=== PATIENT | female | born 1955 | race Caucasian/White ===

== ENCOUNTER 2025-05-05 05:06 | Inpatient (IN) | payer OTHER ==
[~2025-05-05] VITALS: Ht 154.9 cm; Wt 67.3 kg
[2025-05-05 06:00] VITALS: BP 131/80; TEMP 97.7; O2SAT 98
[2025-05-05] MEDS ORDERED: ANESTHESIA TRAY IN PYXIS 1 EA TRAY MC ONE (06:16)
[2025-05-05] MEDS ORDERED: BUPIVACAINE 0.5 % PF 150 MG/30 ML VIAL ONE (06:16)
[2025-05-05] MEDS ORDERED: MIDAZOLAM HCL 2 MG/2ML VIAL ONE (06:35)
[2025-05-05] MEDS ORDERED: FENTANYL PF 100MCG/2ML AMPUL ONE ×2 (06:35→08:37)
[2025-05-05] MEDS ORDERED: BUPIVACAINE MPF W/EPI 0.25% 30 ML VIAL ONE (06:44)
[2025-05-05] MEDS ORDERED: LIDOCAINE 1%-EPI 1:100,000 20 ML VIAL ONE (06:45)
[2025-05-05 06:56] VITALS: BP 131/80; TEMP 97.7; O2SAT 99
[2025-05-05] MEDS: TRANEXAMIC ACID 3,000 MG in SODIUM CHLORIDE IRRIG SOLUTION 70 ML IR ONE (07:00)
[2025-05-05] MEDS ORDERED: TRANEXAMIC ACID 1,000 MG/10 ML VIAL ONE (07:31)
[2025-05-05] MEDS ORDERED: SEVOFLURANE 250 ML BOTTLE IH ONE (07:45)
[2025-05-05] MEDS ORDERED: MENTHOL/CETYLPYRD (CEPACOL) 1 LOZ LOZENGE PO PRN (10:00)
[2025-05-05] MEDS ORDERED: CLONIDINE HCL 0.1 MG TABLET PO PRN (10:00)
[2025-05-05] MEDS ORDERED: LORAZEPAM 1 MG TABLET PO PRN (10:00)
[2025-05-05] MEDS: HYDROMORPHONE 1 MG/1 ML DISP.SYRIN IM/IV/SC ONE (11:20)
[2025-05-05] MEDS ORDERED: SENNOSIDES 8.6 MG TABLET PO PRN (12:00)
[2025-05-05] MEDS ORDERED: PROGESTERONE PO (12:02)
[2025-05-05] MEDS ORDERED: ESTRADIOL TP (12:02)
[2025-05-05] MEDS ORDERED: TESTOSTER TP (12:02)
[2025-05-05] MEDS: IV LR 1000 ML 1,000 ML IV PRN (14:01)
[2025-05-05] MEDS: ANCEF 1 GM/50 ML D5W IV SCH (14:01)
[2025-05-05] MEDS: HYDROMORPHONE 1 MG/1 ML DISP.SYRIN IM/IV/SC PRN (14:26)
[2025-05-05 16:16] VITALS: BP 92/82; TEMP 97.7; O2SAT 98
[2025-05-05] MEDS: DOCUSATE SODIUM 100 MG CAPSULE PO SCH (17:28)
[2025-05-05 20:00] VITALS: BP 113/66; TEMP 97.9; O2SAT 99
[2025-05-05] MEDS: ONDANSETRON HCL/PF 4 MG/2 ML VIAL IV PRN (20:37)
[2025-05-05] MEDS: FAMOTIDINE (20 MG) 20 MG TABLET PO SCH (21:07)
[2025-05-05] MEDS: ZOLPIDEM TARTRATE 5 MG TABLET PO PRN (22:51)
[2025-05-06 08:00] VITALS: BP 97/66; TEMP 98.2; O2SAT 98
[2025-05-06] MEDS: oxyCODONE IR immediate release 5 MG TABLET PO PRN ×2 (08:16→18:08)
[2025-05-06] MEDS: ASPIRIN 325 MG TABLET PO SCH (08:17)
[2025-05-06 16:00] VITALS: BP 99/63; TEMP 97.7; O2SAT 97
[2025-05-06 20:00] VITALS: BP 121/65; TEMP 97.5; O2SAT 97
[2025-05-07 08:40] VITALS: BP 95/56; TEMP 99.1; O2SAT 93
[2025-05-07 10:46] VITALS: BP 120/66; O2SAT 95
[2025-05-07] MEDS: ACETAMINOPHEN 325 MG TABLET PO PRN (17:19)
[2025-05-07 21:31] VITALS: BP 106/60; TEMP 97.5; O2SAT 96
[2025-05-08 08:00] VITALS: BP 116/72; TEMP 98.6; O2SAT 96
[2025-05-08 12:27] LABS: CALCIUM, SERUM 7.9 mg/dL (8.5-10.1); CREATININE 0.7 mg/dL (0.6-1.3); SODIUM SERUM 139.0 mmol/L (136-145); UREA NITROGEN, BLOOD 10.0 mg/dL (7-18)
[2025-05-08 13:28] LABS: PLATELET COUNT (AUTO) 226 K/uL (150-450); RED BLOOD CELL COUNT(AUTO) 3.62 MIL/uL (4.0-5.2); RED CELL DISTRIBUTION WIDTH 12.5 % (11.5-15.0); WHITE BLOOD COUNT (AUTO) 6.8 K/uL (4.3-11.0)
[2025-05-08 16:00] VITALS: BP 127/68; TEMP 97.7; O2SAT 97
[2025-05-08 20:00] VITALS: BP 114/74; TEMP 98.1; O2SAT 98
[2025-05-09 08:00] VITALS: BP 142/88; TEMP 98; O2SAT 98
[2025-05-09] MEDS: CHOLECALCIFEROL 1,000 UNIT TABLET (VIT D3) PO SCH (08:04)
[2025-05-09] MEDS: CALCIUM CARBONATE (1250) 500 MG TABLET PO SCH (08:04)
[2025-05-09] MEDS: TRAMADOL HCL 50 MG TABLET PO PRN (08:04)
[2025-05-09 16:00] VITALS: BP 126/67; TEMP 97.9; O2SAT 98
[2025-05-09] MEDS: MAGNESIUM HYDROXIDE 30 ML UDC PO PRN (17:59)
[2025-05-09 20:00] VITALS: BP 122/66; TEMP 98.1; O2SAT 98
[2025-05-09] MEDS: BISACODYL SUPP (10 MG) 10 MG/SUPP.RECT SUPP.RECT RC PRN (21:16)
[2025-05-10 08:30] VITALS: BP 112/70; TEMP 98.2; O2SAT 100
[2025-05-10 16:32] VITALS: BP 122/60; TEMP 98.2; O2SAT 97
[2025-05-10 20:00] VITALS: BP 126/68; TEMP 97.5; O2SAT 97
[2025-05-11 07:30] VITALS: BP 121/63; TEMP 98.4; O2SAT 95
[2025-05-11] MEDS: ENOXAPARIN SODIUM 40 MG/0.4 ML DISP.SYRIN SQ SCH (10:30)
[2025-05-11 16:00] VITALS: BP 120/76; TEMP 97.5; O2SAT 95
[2025-05-11] MEDS: RIVAROXABAN 10 MG TABLET PO SCH (17:43)
[2025-05-11 20:00] VITALS: BP 118/69; TEMP 98.1; O2SAT 96
[2025-05-12 07:30] VITALS: BP 99/58; TEMP 98.2; O2SAT 94
[2025-05-12] MEDS ORDERED: ASPI-992 PO (09:42)
[2025-05-12] MEDS: MAG HYDROX/AL HYDROX/SIMETH 30 ML UDC PO PRN (13:44)
== END 2025-05-12 15:35 | disposition home health service (06) | DRG 470 ==
LOC: DS 05:06 → MED 05:43
PROVIDERS: ADMIT Internal Medicine; ATTEND Internal Medicine
PROC: 0SR90JZ Replacement of Right Hip Joint with Synthetic Substitute, Open Approach (ICD-10-PCS; principal; 2025-05-05 07:00)
DX: M16.11 Unilateral primary osteoarthritis, right hip (principal); K21.9 Gastro-esophageal reflux disease without esophagitis; Y99.0 Civilian activity done for income or pay; X58.XXXA Exposure to other specified factors, initial encounter; Z79.899 Other long term (current) drug therapy; Z79.890 Hormone replacement therapy; Z79.82 Long term (current) use of aspirin
CPT/HCPCS: 36415; 80048-TC; 82962-TC; 85025-TC; 88305-TC; 88311-TC; 97110-TC; 97116-TC; 97530-TC; 97535-TC; A4217; A4223; A6209; A6402; C1776; G0378; J0690; J1100; J1171; J1650; J1885; J2250; J2405; J2704; J3010; J3490; J7030; J7050; J7060; J7120